=== PATIENT | female | born 1980 | race African-American/Black ===

== ENCOUNTER 2024-07-11 12:35 | Emergency (ER) | payer MEDICARE, MEDICAID, OTHER ==
[~2024-07-11] VITALS: Ht 180.3 cm; Wt 79.5 kg
[2024-07-11 14:56] VITALS: TEMP 97.7
[2024-07-11 15:28] LABS: BASOPHILS % (AUTO) 1.5 % (0.0-2.0); HEMATOCRIT 29.4 % (36-46); HEMOGLOBIN 9.1 g/dL (12.0-16.0); LYMPHOCYTES # (AUTO) 2.3 K/uL (1.0-4.8); MEAN CORPUSCULAR HGB CONC 31.1 G/dL (31.0-37.0); MEAN CORPUSCULAR VOLUME 68 fL (80-100); MONOCYTES # (AUTO) 0.7 K/uL (0.1-1.0); MONOCYTES % (AUTO) 8.5 % (2.0-9.0); PLATELET COUNT (AUTO) 388 K/uL (150-450); RED BLOOD CELL COUNT(AUTO) 4.35 MIL/uL (4.00-5.20); RED CELL DISTRIBUTION WIDTH 19.1 % (11.5-14.5); WHITE BLOOD COUNT (AUTO) 8.4 K/uL (4.5-11.0)
[2024-07-11 15:32] LABS: APPEARANCE,URINE CLEAR (CLEAR); BILIRUBIN,URINE NEGATIVE (NEGATIVE); COLOR,URINE LIGHT YELLOW (YELLOW); GLUCOSE, URINE (UA) NEGATIVE (NEGATIVE); KETONES,URINE NEGATIVE (NEGATIVE); LEUKOCYTE ESTERASE ,URINE NEGATIVE (NEGATIVE); NITRATE,URINE NEGATIVE (NEGATIVE); OCCULT BLOOD,URINE NEGATIVE (NEGATIVE); PROTEIN,URINE NEGATIVE (NEGATIVE); SPECIFIC GRAVITIY, URINE 1.015 (1.003-1.030); UROBILINOGEN,URINE <=1.0 mg/dL (<=1.0)
[2024-07-11 15:37] LABS: ANION GAP 7 mmol/L (8-16); CALCIUM, TOTAL 8.9 mg/dL (8.8-10.5); CARBON DIOXIDE 28 mmol/L (22-29); CHLORIDE 107 mmol/L (98-107); CREATININE 0.87 mg/dL (0.60-1.30); GLOMERULAR FILTR. RATE CALC > 60 mL/min (>60); GLUCOSE,RANDOM 83 mg/dL (70-110); POTASSIUM 4.1 mmol/L (3.5-5.1); SODIUM SERUM 142 mmol/L (136-145); UREA NITROGEN, BLOOD 14 mg/dL (7-18)
[2024-07-11 15:50] LABS: RBC MORPHOLOGY COMMENT ABNORMAL RBC MORPH
[2024-07-11 15:58] LABS: HCG,QUANTITATIVE 3 mIU/mL (0-6); LIPASE 79 U/L (16-77)
[2024-07-11] MEDS ORDERED: SODIUM CHLORIDE 0.9% 100 ML ONE (16:09)
[2024-07-11] MEDS ORDERED: IOHEXOL 350 MG/ML 100 ML VIAL ONE (16:09)
[2024-07-11] MEDS ORDERED: 0.9% SODIUM CHLORIDE 10 ML SYRINGE IVP ONE (16:09)
[2024-07-11] MEDS: KETOROLAC TROMETHAMINE 30 MG/ML VIAL IVP ONE (16:59)
[2024-07-11 17:00] VITALS: BP 132/94; PULSE 66; RESP 18; O2SAT 100
== END 2024-07-11 17:26 | disposition home or self-care (01) ==
LOC: EMS 12:40
DX: R10.32 Left lower quadrant pain (principal); M25.552 Pain in left hip; F12.90 Cannabis use, unspecified, uncomplicated
CPT/HCPCS: 99285; 74177; 96374; 80048; 81003; 83690; 84702; 85025; 36415; Q9967; J1885; J7050